=== PATIENT | male | born 1990 ===

== ENCOUNTER → 2024-10-04 | Outpatient (CLI) | payer BC ==
[2024-10-06 09:39] LABS: LYME VLSE1/PEPC10 ABS, ELISA 0.39 IV (<=0.90)
== END ==
LOC: LAB 08:10 → LAB SHORT 08:10
PROVIDERS: Physician Assistant
DX: R51.9 Headache, unspecified (principal); R50.9 Fever, unspecified; W57.XXXA Bitten or stung by nonvenomous insect and other nonvenomous arthropods, initial encounter
CPT/HCPCS: 86618